=== PATIENT | female | born 1935 | race Caucasian/White ===

== ENCOUNTER → 2018-12-16 | Outpatient (CLI) | payer MEDICARE, BC ==
[2018-12-16 09:55] LABS: Source, Urine Clean Catch
[2018-12-16 11:26] LABS: Appearance, Urine Hazy (Clear); Bilirubin, Urine Neg (Neg); Blood, Urine Neg (Neg); Color, Urine Yellow (P-Yellow); Glucose Qualitative, Urine Neg (Normal); Ketones, Urine Neg (Neg); Leukocyte Esterase, Urine Trace (Neg); Nitrite, Urine Pos (Neg); Protein, Urine Neg (Neg); Specific Gravity, Urine 1.005 (1.003-1.022); Urobilinogen, Urine NORM (Normal)
[2018-12-16 11:27] LABS: Bacteria Many /hpf; Red Blood Cells, Urine 0-2 /hpf (0-2); Squamous Epithelial Cells Few /hpf (Few)
== END | disposition home or self-care (01) ==
LOC: LAB EV 09:51 → LAB FUT 12-14 13:00
PROVIDERS: Nurse Practitioner Family
DX: R30.0 Dysuria (principal)
CPT/HCPCS: 81001; 87077; 87086; 87186

== ENCOUNTER → 2021-09-08 | Outpatient (CLI) | payer MEDICARE, BC ==
[2021-09-08 15:19] LABS: Creatinine Urine 40.7 mg/dL (27.00-270.00)
[2021-09-08 15:20] LABS: Calcium, Urine 19.5 mg/dL (< 17.5)
== END | disposition home or self-care (01) ==
LOC: LAB 09:35 → LAB SHORT 09:35
PROVIDERS: Internal Medicine Endocrinology, Diabetes & Metabolism
DX: E21.0 Primary hyperparathyroidism (principal)
CPT/HCPCS: 81050; 82340; 82570

== ENCOUNTER 2022-05-13 06:13 | Day surgery (SDC) | payer MEDICARE, BC ==
[~2022-05-13] VITALS: Ht 152.4 cm; Wt 56.1 kg
[2022-05-13] MEDS ORDERED: ALEN70 PO (07:15)
[2022-05-13] MEDS ORDERED: LEVSOD100 (07:16)
[2022-05-13] MEDS ORDERED: ATOR20 (07:16)
[2022-05-13] MEDS ORDERED: METF500 PO (07:17)
[2022-05-13] MEDS ORDERED: NIFE60ER PO (07:18)
--- NOTE | 2022-05-13 08:45 | NUR ---
05/13/22 0845 Dorota Boggs MIXED 5CC OF 0.9 SODIUM CHLORIDE WITH 5CC OF 2% LIDO WITH EPI 1:100,000 TO CREATE A SOLUTION 1% LIDO WITH EPI 1:200,000 FOR INJECTION.
--- NOTE | 2022-05-13 09:58 | NUR ---
05/13/22 0958 Nolan Morocho 4MG PROVIDED AT 0948 FOR COMPLAINT OF NAUSEA. FENTANYL 25MCG GIVEN AT 0954 FOR THROAT PAIN AT 10/01.
== END 2022-05-13 10:55 | disposition home or self-care (01) ==
LOC: ORSCSDS 06:13
PROVIDERS: Otolaryngology
PROC: 0GTL0ZZ Resection of Right Superior Parathyroid Gland, Open Approach (ICD-10-PCS; principal; 2022-05-13 07:30)
DX: E21.0 Primary hyperparathyroidism (principal); D35.1 Benign neoplasm of parathyroid gland; E03.9 Hypothyroidism, unspecified; I10 Essential (primary) hypertension; E11.9 Type 2 diabetes mellitus without complications; Z79.84 Long term (current) use of oral hypoglycemic drugs; Z79.899 Other long term (current) drug therapy
CPT/HCPCS: 82947; 83970; 88305; 88331; J0330; J1100; J2250; J2370; J2405; J2704; J3010